=== PATIENT | male | born 1990 | race Two or more races ===

== ENCOUNTER 2022-08-20 13:54 | Emergency (ER) | payer OTHER ==
[~2022-08-20] VITALS: Ht 190.5 cm; Wt 115.2 kg
[2022-08-20] MEDS ORDERED: DICLOFENAC SODI75 MG PO (20:08)
[2022-08-20] MEDS ORDERED: CIPRO500 MG PO (20:09)
== END 2022-08-20 20:40 | disposition home or self-care (01) ==
LOC: ER 13:54
DX: K61.0 Anal abscess (principal)